=== PATIENT | male | born 1990 | race Caucasian/White ===

== ENCOUNTER 2017-12-14 15:10 | Emergency (ER) | payer BC, OTHER ==
[2017-12-14 15:38] VITALS: BP 134/75
--- NOTE | 2017-12-14 15:51 | UC ---
General HPI - HPI Summary HPI Summary: pt states that he works for the [employer] on [email or web address] He has been subject to multiple tick bites. yesterday, he developed fever, chills, bodyaches and joint pains plus a temp to 102. he wants to ensure this is not Lyme disease. he also wants to ensure that it is not pigeon pneumonia because he has been in a dust attic with pigeon poop. he reports his "lungs feel tight" but denies wheezing and sob. No associated uri, st, cp, abd pain, n/v/d and dysuria. he denies any rash. - History of Current Complaint Chief Complaint: UCGeneralIllness Stated Complaint: CHILLS,FEVER Time Seen by Provider: 12/14/17 15:40 Hx Obtained From: Patient, Family/Tobacco Sample Puller Onset/Duration: Gradual Onset Pain Intensity: 6 Aggravating: nothing Alleviating: Tylenol Associated Signs & Symptoms: Positive: Fever - Allergy/Home Medications Allergies/Adverse Reactions: Allergies Allergy/AdvReac Type Severity Reaction Status Date / Time No Known Allergies Allergy Verified 12/14/17 15:38 Home Medications: Home Medications Acetaminophen [Tylenol Extra Strength] 1,000 mg PO DAILY 12/14/17 [History Confirmed 12/14/17] PMH/Surg Hx/FS Hx/Imm Hx Previously Healthy: Yes - Surgical History Surgical History: None - Family History Known Family History: Positive: Other - sibling with hx malignant tumor - Social History Occupation: Employed Full-time Lives: With Family Alcohol Use: Daily Substance Use Type: None Smoking Status (MU): Never Smoked Tobacco - Immunization History Vaccination Up to Date: Yes Review of Systems Constitutional: Fever, Chills Skin: Negative Eyes: Negative ENT: Negative Respiratory: Negative Cardiovascular: Negative Gastrointestinal: Negative Genitourinary: Negative Motor: Negative Neurovascular: Negative Musculoskeletal: Arthralgia, Myalgia Neurological: Negative Psychological: Negative Is Patient Immunocompromised?: No All Other Systems Reviewed And Are Negative: Yes Physical Exam Triage Information Reviewed: Yes Appearance: Well-Appearing Vital Signs: Initial Vital Signs Temp 100.7 F 12/14/17 15:32 Pulse 106 12/14/17 15:32 Resp 16 12/14/17 15:32 BP 134/75 12/14/17 15:32 Pulse Ox 100 12/14/17 15:32 Vital Signs Reviewed: Yes Eyes: Positive: Conjunctiva Clear ENT: Positive: Pharynx normal, TMs normal. Negative: Nasal congestion, Nasal drainage Neck: Positive: Supple, Nontender, No Lymphadenopathy Respiratory: Positive: Lungs clear, No respiratory distress, Decreased breath sounds. Negative: Crackles, Rhonchi, Wheezing Cardiovascular: Positive: RRR, No Murmur Abdomen Description: Positive: Nontender, No Organomegaly, Soft Bowel Sounds: Positive: Present Musculoskeletal: Positive: ROM Intact, No Edema Neurological: Positive: Alert Psychological: Positive: Normal Response To Family, Age Appropriate Behavior Skin Exam: Normal Diagnostics - Laboratory Diagnostic Studies Completed/Ordered: lyme testing pending. - Radiology No standard instances Radiology Interpretation Completed By: Radiologist - CXR IMPRESSION: NO EVIDENCE FOR ACTIVE CARDIOPULMONARY DISEASE Course/Dx - Course Course Of Treatment: pt is non toxic and not hypoxic. his cxr showed no infiltrate. lyme testing is pending. I will start txing presumptively for lyme disease with doxycycline. need for close f/u and recheck with pcp stressed at time of visit. - Differential Dx - Multi-Symptom Provider Diagnoses: Fever. Myalgia/arthralgia. r/o lyme disease. Discharge - Sign-Out/Discharge Documenting (check all that apply): Patient Departure - Discharge Plan Condition: Stable Disposition: HOME Prescriptions: DOXYcycline CAP(*) [DOXYcycline 100MG CAP(*)] 100 mg PO BID 14 Days #28 cap Patient Education Materials: Fever in Adults (ED) Forms: *Work Release Referrals: Eros Lipscomb DO [Primary Care Provider] - 3 Days Additional Instructions: Per institutional requirements, I have reviewed the chart, however, I was not consulted specifically or made aware of this patient by the above midlevel provider. I did not personally evaluate, interact with , or disposition this patient. - Billing Disposition and Condition Condition: STABLE Disposition: Home
--- NOTE | 2017-12-14 16:35 | RAD ---
INDICATION: Fever. COMPARISON: There are no prior studies available for comparison. TECHNIQUE: Dual-energy PA and lateral views of the chest were obtained. FINDINGS: The heart is within normal limits in size. Mediastinal and hilar contours appear within normal limits. The lungs are clear. No pleural effusion is present. IMPRESSION: NO EVIDENCE FOR ACTIVE CARDIOPULMONARY DISEASE.
[2017-12-14] MEDS ORDERED: DOXYcycline CAP(*) 100 MG PO ONE (17:09)
== END 2017-12-14 17:16 | disposition home or self-care (01) ==
LOC: UCCORT 15:10
DX: R50.9 Fever, unspecified (principal); M79.1 Myalgia; M25.50 Pain in unspecified joint
CPT/HCPCS: 71046; 86617; 99202; A9270-GY; G0463

== ENCOUNTER 2018-04-30 14:33 | Emergency (ER) | payer BC ==
[2018-04-30 16:34] VITALS: BP 145/86
--- NOTE | 2018-04-30 17:05 | UC ---
Respiratory Complaint HPI - HPI Summary HPI Summary: 4 week history of respiratory symptoms, beginning with sinus pressure and pain. Seen at urgent care on [address], tx cough suppressant and flonase. Improved a little, but for the past 4 days has had low grade fever, cough productive of green sputum, loose stool today. Poor sleep x weeks. - History of Current Complaint Chief Complaint: UCGeneralIllness Stated Complaint: CONGESTION,ST,FEVER,COUGH Time Seen by Provider: 04/30/18 16:53 Hx Obtained From: Patient Onset/Duration: Gradual Onset, Lasting Weeks Timing: Intermittent Episodes - coughing bouts lasting minutes Severity Initially: Moderate Severity Currently: Moderate Pain Intensity: 0 Character: Cough: Productive Aggravating Factors: Exertion, Recumbent Position Alleviating Factors: OTC Meds Associated Signs And Symptoms: Positive: Chills, Wheezing, Nasal Congestion, Sinus Discomfort - Risk Factors Pulmonary Embolism Risk Factors: Negative Cardiac Risk Factors: Negative Pseudomonas Risk Factors: Negative Tuberculosis Risk Factors: Negative - Allergies/Home Medications Allergies/Adverse Reactions: Allergies Allergy/AdvReac Type Severity Reaction Status Date / Time No Known Allergies Allergy Verified 04/30/18 16:33 PMH/Surg Hx/FS Hx/Imm Hx Previously Healthy: Yes - Surgical History Surgical History: Yes Surgery Procedure, Year, and Place: fatty tumor right forearm - Family History Known Family History: Positive: Other - sibling with hx malignant tumor - Social History 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 Lives: With Family Alcohol Use: Occasionally Substance Use Type: None Smoking Status (MU): Never Smoked Tobacco - Immunization History Vaccination Up to Date: Yes Review of Systems All Other Systems Reviewed And Are Negative: Yes Constitutional: Positive: Fever, Fatigue Skin: Positive: Negative Eyes: Positive: Negative ENT: Positive: Negative Respiratory: Positive: Cough Cardiovascular: Positive: Negative Gastrointestinal: Positive: Negative Genitourinary: Positive: Negative Motor: Positive: Negative Neurovascular: Positive: Negative Musculoskeletal: Positive: Negative Neurological: Positive: Negative Psychological: Positive: Negative Is Patient Immunocompromised?: No Physical Exam Triage Information Reviewed: Yes Appearance: Ill-Appearing - looks fatigued and mildly unwell Vital Signs: Initial Vital Signs Temp 98.3 F 04/30/18 16:30 Pulse 70 04/30/18 16:30 Resp 19 04/30/18 16:30 BP 145/86 04/30/18 16:30 Pulse Ox 98 12/27/18 16:30 Eyes: Positive: Conjunctiva Clear ENT: Positive: Pharynx normal, TMs normal Neck: Positive: Supple, Nontender, No Lymphadenopathy Respiratory: Positive: Decreased breath sounds, Wheezing - diffuse wheeze, coarse breath sounds.. Negative: Respiratory distress Cardiovascular: Positive: RRR, No Murmur UC Diagnostic Evaluation - Laboratory O2 Sat by Pulse Oximetry: 98 Respiratory Course/Dx - Course Course Of Treatment: azithromycin for suspected mycoplasma. - Differential Dx/Diagnosis Differential Diagnosis/HQI/PQRI: Bronchitis, Laryngitis, Lower Resp Infection, Sinusitis Provider Diagnosis: Mycoplasma infection, unspecified site Discharge - Sign-Out/Discharge Documenting (check all that apply): Patient Departure All imaging exams completed and their final reports reviewed: No Studies - Discharge Plan Condition: Stable Disposition: HOME Prescriptions: Azithromyxin ESAU (NF) [Z-Esau (Zithromax) 250 mg tabs #6] 2 tab PO .TODAY, THEN 1 DAILY #6 tab Patient Education Materials: Acute Bronchitis (ED) Referrals: Eros Lipscomb DO [Primary Care Provider] - Additional Instructions: Ensure that you have a re-check of your blood pressure within several weeks, because it is elevated to 145/86 today. I suspect that you have a bacteria called Mycoplasma, and this infection should respond to azithromycin. Continue use of cough suppressant and you can use flonase if it helps to improve the post nasal drainage and decrease cough. - Billing Disposition and Condition Condition: STABLE Disposition: Home
== END 2018-04-30 17:20 | disposition home or self-care (01) ==
LOC: UCCORT 14:33
DX: A49.3 Mycoplasma infection, unspecified site (principal)
CPT/HCPCS: 99212; G0463